=== PATIENT | male | born 1970 | race Caucasian/White ===

== ENCOUNTER 2017-07-12 07:59 | Day surgery (SDC) | payer OTHER ==
[2017-07-12] MEDS ORDERED: PROPOFOL 500 MG/50 ML EMU IV ONE (08:39)
[2017-07-12] MEDS ORDERED: FENTANYL 100MCG/2ML SOL ONE (08:40)
[2017-07-12] MEDS ORDERED: MIDAZOLAM 2 MG/2 ML SOL ONE (08:40)
[2017-07-12] MEDS ORDERED: CLINDAMYCIN 150 MG/ML SOL ONE (09:28)
[2017-07-12] MEDS ORDERED: ONDANSETRON HCL 4 MG/2 ML SOL ONE (09:37)
[2017-07-12] MEDS: LIDOCAINE HCL 1% MPF SOL ONE ×3 (09:39→09:46)
[2017-07-12 10:19] VITALS: O2SAT 96
[2017-07-12 11:06] VITALS: BP 135/91; PULSE 56; RESP 20; TEMP 97.3
== END 2017-07-12 10:50 | disposition home or self-care (01) | DRG 558 ==
LOC: SURG 07:59
PROVIDERS: ATTEND Orthopaedic Surgery
DX: M65.331 Trigger finger, right middle finger (principal)
CPT/HCPCS: 99070; J2250; J2405; J3010; J3490; A6402; J2001; J2704